=== PATIENT | female | born 1965 | race American Indian/Alaskan Native ===

== ENCOUNTER 2017-02-19 21:50 | Emergency (ER) | payer OTHER ==
[2017-02-19 22:00] VITALS: BP 127/85; PULSE 84; RESP 18; TEMP 97.9; O2SAT 100; BMI 24.7
--- NOTE | 2017-02-19 22:23 | ED PDOC ---
Arrival/HPI - General Chief Complaint: Shortness Of Breath Time Seen by Provider: 02/19/17 21:57 Historian: Patient - Critical Care Narrative Critical Care (Text): 02/19/17 22:17 51 year old female, smoker, whose past medical history includes known asthma since childhood and recent Upper Respiratory Infection, presents to the Emergency Department complaining of shortness of breath s/p shoveling snow off her car today. Patient states mild improvement of symptoms after taking her nebulizer. Patient additionally informs developing mild chest tightness and wheezing, associated with mild cough and sore throat. Patient informs symptoms similar to past episode. Patient admits to smoking 1-2 cigarettes a day and admits to no significant past hospitalization for asthma exacerbation or intubation. Patient denies any sputum production, headache, fever, chills, nausea, vomiting, diarrhea, abdominal pain, dizziness, lightheadedness or any other complaints. - History of Present Illness Time/Duration: 4-6 hours Symptom Onset: Gradual Symptom Course: Unchanged Activities at Onset: Other (cleaning snow off car ) Context: Street Past Medical History - Provider Review Nursing Documentation Reviewed: Yes - Cardiac Hx Cardiac Disorders: No - Pulmonary Hx Asthma: Yes - Neurological Hx Neurological Disorder: No - HEENT Hx HEENT Disorder: No - Renal Hx Renal Disorder: No - Endocrine/Metabolic Hx Endocrine Disorders: No - Hematological/Oncological Hx Blood Disorders: No - Integumentary Hx Dermatological Disorder: No - Musculoskeletal/Rheumatological Hx Musculoskeletal Disorders: No - Gastrointestinal Hx Gastrointestinal Disorders: No - Genitourinary/Gynecological Hx Genitourinary Disorders: No - Psychiatric Hx Psychophysiologic Disorder: No Hx Substance Use: No Family/Social History - Physician Review Nursing Documentation Reviewed: Yes Family/Social History: Unknown Family HX Smoking Status: Current Some Days Smoker Hx Alcohol Use: No Hx Substance Use: No Allergies/Home Meds Allergies/Adverse Reactions: Allergies No Known Allergies Allergy (Verified 02/19/17 22:01) Home Medications: Home Meds Medication Instructions Recorded Confirmed Albuterol/Ipratropium [Combivent 0 puff IH DAILY 02/19/17 02/19/17 Respimat] Review of Systems - Physician Review All systems were reviewed & negative as marked: Yes - Review of Systems Constitutional: Normal. absent: Fevers Eyes: Normal ENT: Sore Throat Respiratory: SOB, Cough (mild ), Wheezing Cardiovascular: Chest Pain (mild secondary to shortness of breath ) Gastrointestinal: Normal. absent: Abdominal Pain, Diarrhea, Nausea, Vomiting Genitourinary Female: Normal Musculoskeletal: Normal Skin: Normal Neurological: Normal. absent: Headache Endocrine: Normal Hemo/Lymphatic: Normal Psychiatric: Normal Physical Exam Vital Signs Reviewed: Yes Vital Signs Temp Pulse Resp BP Pulse Ox 02/19/17 22:01 97.9 F 84 18 127/85 100 02/19/17 22:00 18 100 02/19/17 21:57 97.9 F 84 18 127/85 100 Temperature: Afebrile Blood Pressure: Normal Pulse: Regular Respiratory Rate: Normal Appearance: Positive for: Well-Appearing, Non-Toxic, Comfortable, Other (no acute distress ) Pain Distress: None Mental Status: Positive for: Alert and Oriented X 3 - Systems Exam Head: Present: Atraumatic, Normocephalic Pupils: Present: PERRL Extroacular Muscles: Present: EOMI Conjunctiva: Present: Normal Mouth: Present: Moist Mucous Membranes Neck: Present: Normal Range of Motion, Other (supple) Respiratory/Chest: Present: Good Air Exchange, Rhonchi (mild expiratory rhonchi ). No: Respiratory Distress, Accessory Muscle Use, Wheezes Cardiovascular: Present: Regular Rate and Rhythm, Normal S1, S2. No: Murmurs Abdomen: Present: Normal Bowel Sounds. No: Tenderness, Distention, Peritoneal Signs Back: Present: Normal Inspection Upper Extremity: Present: Normal Inspection. No: Cyanosis, Edema Lower Extremity: Present: Normal Inspection. No: Edema Neurological: Present: GCS=15, CN II-XII Intact, Speech Normal (speaking full sentences ) Skin: Present: Warm, Dry, Normal Color. No: Rashes Psychiatric: Present: Alert, Oriented x 3, Normal Insight, Normal Concentration Medical Decision Making ED Course and Treatment: 02/19/17 22:26 Impression: 51 year old female presents to the ED for Shortness of breath. Differential Diagnosis: mild asthma exacerbation Plan: -- EKG -- Albuterol -- Check pre/post peak flow -- Steroids Progress Notes: 02/19/17 22:26 EKG: NSR at 66 BPM. No ectopic beats, no intervals. AV axis within normal limits. No EKG for comparison. 02/19/17 23:07 Upon reassessment, patient feels much improved after IV steroids and nebulizer. Patient will be discharged home with steroids. Patient has nebulizer at home. - EKG Interpretation Interpreted by ED Physician: Yes Type: 12 lead EKG - Medication Orders Current Medication Orders: Discontinued Medications Albuterol/Ipratropium (Duoneb 3 Mg/0.5 Mg (3 Ml) Ud) 3 ml IH STAT STA Stop: 02/19/17 22:31 Last Admin: 02/19/17 22:49 Dose: 3 ml Methylprednisolone (Solu-Medrol) 125 mg IVP STAT STA Stop: 02/19/17 22:32 Last Admin: 02/19/17 22:49 Dose: 125 mg IVP Administration Document 02/19/17 22:49 CNR (Rec: 02/19/17 22:49 CNR [id number]) Charges for Administration # of IVP Administrations 1 - Scribe Statement The provider has reviewed the documentation as recorded by the Scribe Donny Montes De Oca. All medical record entries made by the Scribe were at my direction and personally dictated by me. I have reviewed the chart and agree that the record accurately reflects my personal performance of the history, physical exam, medical decision making, and the department course for this patient. I have also personally directed, reviewed, and agree with the discharge instructions and disposition. Disposition/Present on Arrival - Present on Arrival Any Indicators Present on Arrival: No History of DVT/PE: No History of Uncontrolled Diabetes: No Urinary Catheter: No History of Decub. Ulcer: No History Surgical Site Infection Following: None - Disposition Have Diagnosis and Disposition been Completed?: Yes Diagnosis: Asthma Disposition: HOME/ ROUTINE Disposition Time: :24 Patient Plan: Discharge Condition: GOOD Discharge Instructions (ExitCare): Asthma (ED) Print Language: VIET[place]ESE Prescriptions: Prednisone [Deltasone] 20 mg PO DAILY #5 tablet Referrals: Alejandro Sagastume APN [Primary Care Provider] - Follow up with primary Forms: [employer] (Pashto)
[2017-02-19] MEDS ORDERED: Albuterol-Ipratrop 3 mg / 0.5 (3 ml) UD IH STA (22:30)
--- NOTE | 2017-02-20 15:39 | CARD ---
APPROVED REPORT EKG Measurement Heart [id number] <Conclusion> Normal sinus rhythm with sinus arrhythmia Normal ECG
== END 2017-02-19 23:14 | disposition home or self-care (01) ==
LOC: ED 21:50
DX: J45.909 Unspecified asthma, uncomplicated (principal); F17.210 Nicotine dependence, cigarettes, uncomplicated
CPT/HCPCS: 93005; 94150; 96374; 99284; J2930